=== PATIENT | male | born 1975 | race Caucasian/White ===

== ENCOUNTER 2023-07-01 12:50 | Emergency (ER) | payer BC, SELFPAY ==
--- NOTE | 2023-07-01 12:52 | ECG_ITS ---
[facility] Test Date: 2023-07-01 Pat Name: Felix Jasso Department: Room: Gender: Male [employer]ap[employer] Consultant: : 1975 Requested By: Tyrell Crews Order Number: [id number] Beth MD: Maykel Cowan M.D. Measurements Intervals [place] Rate: 97 P: 80 VT: 163 QRS: 18 QRSD: 110 T: 68 QT: 341 QTc: 433 Interpretive Statements SINUS RHYTHM INCOMPLETE RIGHT BUNDLE BRANCH BLOCK [90+ ms QRS DURATION, TERMINAL R IN V1/V2, 40+ ms S IN I/aVL/V4/V5/V6] No previous ECG available for comparison Electronically Signed On 07-02-2023 9:39:33 CDT by Maykel Cowan M.D. [id number]
[2023-07-01 12:58] VITALS: BP 110/73; PULSE 97; RESP 18; TEMP 36.7; O2SAT 100; BMI 25.7
--- NOTE | 2023-07-01 12:59 | XR_ITS ---
WS: [id number] Portable AP upright chest, 07/01/2023 Clinical Data: dyspnea/cough Comparison: None. Findings: No nodules, masses or effusions are seen. The heart is normal. The pulmonary vascularity is not increased. No pneumonia or pneumothorax is seen. Monitor leads are on the chest wall. Impression: Negative chest.
[2023-07-01 13:01] VITALS: BP 122/77; PULSE 89; RESP 16; O2SAT 100
--- NOTE | 2023-07-01 13:09 | W.ED.CHESTPA ---
HPI - Chest Pain General: Chief Complaint: Chest Pain Stated Complaint: chest pain Time Seen by Provider: 07/01/23 12:57 Source: patient Mode of arrival: ambulatory History of Present Illness: 48-year-old male presents emergency room complaining of chest discomfort. He started noticing it yesterday. Worse this morning around 10:00 radiating to his back. He feels a pressure sensation he has a history of hypertension. He is currently on metoprolol and lisinopril. He is a non-smoker has no known history of coronary disease no recent fever sweats or chills no productive cough no abdominal pain. No previous cardiac work-ups. MD complaint: chest pain Onset (ago): day(s) (1) Prior episodes: No Onset: during rest Pain location: left chest Pain radiation: back Severity: mild Quality: aching and heaviness Relieving factors: nothing Exacerbating factors: nothing Associated symptoms: Deny abdominal pain, diaphoresis, dyspnea, fever(s), leg edema, nausea, palpitations, sense of impending doom, syncope or vomiting Treatment prior to arrival: none Review of Systems Const: Denies: fever(s), chills or diaphoresis ENMT: Denies: throat pain, ear or mastoid pain, nasal discharge or nasal congestion Card: Reports: chest pain; Denies: palpitations or syncope Resp: Denies: dyspnea GI: Denies: abdominal pain, nausea or vomiting : Denies: flank pain, dysuria, urinary frequency or urinary urgency Skin/Breast: Denies: rash or pruritus Physical Exam Const: COMMON NORMALS: no acute distress GENERAL APPEARANCE: cooperative and comfortable ORIENTATION/CONSCIOUSNESS: Yes awake, Yes oriented to person, Yes oriented to place and Yes oriented to time HENMT: COMMON NORMALS: normocephalic, atraumatic and hearing grossly normal bilaterally HEAD & SCALP: normocephalic and atraumatic Resp: COMMON NORMALS: normal respiratory effort, No retractions, No use of accessory muscles and clear to auscultation bilaterally AUSCULTATION: clear to auscultation bilaterally Cardio: COMMON NORMALS: regular rate, regular rhythm and No murmurs present (Cardio) RATE: regular rate RHYTHM: regular rhythm GI: COMMON NORMALS: Soft to palpation and No hepatosplenomegaly present AUSCULTATION: Yes normoactive bowel sounds PALPATION: Yes Soft to palpation, No Tenderness to palpation present (GI), No Guarding due to palpation present (GI) and Yes No hepatosplenomegaly present Extremity: COMMON NORMALS: normal to inspection, capillary refill normal, no clubbing, cyanosis or edema, no calf tenderness and no pedal edema Neuro: SENSORIUM/ORIENTATION: Yes oriented to person, Yes oriented to place and Yes oriented to time Skin: COMMON NORMALS: no rashes or lesions noted GENERAL SKIN EXAM: no rashes or lesions noted Course Vital Signs: Vital signs: Vital Signs Temperature 98.1 F 07/01/23 12:58 Pulse Rate 86 07/01/23 16:17 Respiratory Rate 15 07/01/23 16:17 Blood Pressure 123/80 07/01/23 16:17 Pulse Oximetry 98 07/01/23 16:17 Oxygen Delivery Me thod Room Air 07/01/23 13:24 MDM - Chest Pain Medical Decision Making Atypical chest pain. Not currently having symptoms. Troponins trending normal. EKG does not show any acute changes. Chest x-ray is unremarkable. Discharge patient home. Will start on omeprazole and also add graded exercise stress test. Medical Records I reviewed the patient's medical records. Lab Data I reviewed the patient's lab results. 07/01/23 13:05 07/01/23 13:05 Laboratory Results WBC 6.61 10^3/uL (3.29-11.43) 07/01/23 13:05 RBC 5.03 10^6/uL (3.85-5.65) 07/01/23 13:05 Hgb 16.10 g/dL (11.27-16.99) 07/01/23 13:05 Hct 44.6 % (37-53) 07/01/23 13:05 MCV 88.7 fl (82-101) 07/01/23 13:05 MCH 32.0 pg (27-33) 07/01/23 13:05 MCHC 36.1 g/dL (30-55) 07/01/23 13:05 RDW 11.9 % (12.1-15.1) L 07/01/23 13:05 Plt Count 198 10^3/cmm (157-399) 07/01/23 13:05 MPV 10.1 fL (7.4-10.4) 07/01/23 13:05 Neut % (Auto) 73.6 % 07/01/23 13:05 Lymph % (Auto) 18.0 % 07/01/23 13:05 Bartholomew % (Auto) 7.7 % 07/01/23 13:05 Eos % (Auto) 0.2 % 07/01/23 13:05 Baso % (Auto) 0.2 % 07/01/23 13:05 Neut # (Auto) 4.87 10^3/uL (1.8-7.7) 07/01/23 13:05 Lymph # (Auto) 1.2 10^3/uL (0.8-4.8) 07/01/23 13:05 Bartholomew # (Auto) 0.5 10^3/uL (0.2-0.9) 07/01/23 13:05 Eos # (Auto) 0.0 10^3/uL (0.0-0.8) 07/01/23 13:05 Baso # (Auto) 0.0 10^3/uL (0.0-0.1) 07/01/23 13:05 Nucleated RBC % (auto) 0 % 07/01/23 13:05 Nucleated RBCs # 0.0 /100WBC 07/01/23 13:05 Sodium 133 mmol/L (136-145) L 07/01/23 13:05 Potassium 4.0 mmol/L (3.5-5.1) 07/01/23 13:05 Chloride 98 mmol/L (98-107) 07/01/23 13:05 Carbon Dioxide 25 mmol/L (22-29) 07/01/23 13:05 Anion Gap 14.0 (5-19) 07/01/23 13:05 BUN 22 mg/dL (6-20) H 07/01/23 13:05 Creatinine 1.2 mg/dL (0.7-1.2) 07/01/23 13:05 GFR Calculation 65.2 mL/min (90-130) L 07/01/23 13:05 Glucose 134 mg/dL (65-115) H 07/01/23 13:05 Calculated Osmolality 281 mOsm/kg (285-295) L 07/01/23 13:05 Calcium 9.4 mg/dL (8.5-10.5) 07/01/23 13:05 Total Bilirubin 0.3 mg/dL (0.15-1.2) 07/01/23 13:05 AST 40 U/L (0-40) 07/01/23 13:05 ALT 49 U/L (0-41) H 07/01/23 13:05 Alkaline Phosphatase 57 U/L (40-130) 07/01/23 13:05 Troponin T Baseline 8 ng/L (0-15) 07/01/23 13:05 Troponin T 120 Minute 10.78 ng/L (0-15) 07/01/23 14:59 Delta Troponin T 2.78 ABS# (0-10) 07/01/23 14:59 Total Protein 7.9 g/dL (6.6-8.7) 07/01/23 13:05 Albumin 4.7 g/dL (3.5-5.2) 07/01/23 13:05 Globulin 3.2 g/dL (1.3-4.6) 07/01/23 13:05 All radiology interpretation(s) finalized by discharge Discharge Plan Discharge Patient Disposition: Home Clinical Impression: Atypical chest pain, Labyrinthitis Condition: Stable Prescriptions: New aspirin 81 mg tablet,delayed release (DR/EC) 81 mg PO DAILY Qty: 30 0RF omeprazole 40 mg capsule,delayed release(DR/EC) 40 mg PO DAILY Qty: 30 0RF No Action lisinopril 20 mg tablet 20 mg PO BID metoprolol tartrate 50 mg tablet 50 mg PO BID Rx Instructions: Hold if pulse is less than 50 gabapentin 300 mg capsule 300 mg PO BEDTIME diclofenac sodium 75 mg tablet,delayed release (DR/EC) 75 mg PO DAILY hydroxyzine HCl 25 mg tablet 25 mg PO BID hydrochlorothiazide 25 mg tablet 25 mg PO DAILY Discharge Orders: Discharge ED (Routine); Ordered 07/01/23 Ordered By: Tyrell Kelly Discharge Diet: Usual diet Discharge Activity: Increase activity as tolerated Patient Instructions: Opioid Safety, Pain Management Activity Restrictions/Additional Instructions: You were seen today for atypical chest pain your cardiac enzymes and EKG does not show any acute changes. We will discharge you home have you start on omeprazole 40 mg daily. Case management make arrangements for an outpatient graded exercise stress test to further evaluate your heart. Coding Level of Care Code ED Power Plant Superintendent for Skipg Aurelio
[2023-07-01 13:22] LABS: Basophils % 0.2 %; Eosinophils % 0.2 %; Hematocrit 44.6 % (37-53); Lymphocytes # 1.2 10^3/uL (0.8-4.8); Mean Corpuscular HGB Conc 36.1 g/dL (30-55); Mean Corpuscular Volume 88.7 fl (82-101); Mean Platelet Volume 10.1 fL (7.4-10.4); Monocytes # 0.5 10^3/uL (0.2-0.9); Monocytes % 7.7 %; Neutrophils # 4.87 10^3/uL (1.8-7.7); Neutrophils % 73.6 %; Nucleated Red Blood Cells % 0 %; Platelet Count 198 10^3/cmm (157-399); Red Blood Count 5.03 10^6/uL (3.85-5.65); Red Cell Distribution Width 11.9 % (12.1-15.1); White Blood Count 6.61 10^3/uL (3.29-11.43)
[2023-07-01 13:24] VITALS: O2SAT 95
[2023-07-01 13:40] LABS: Alanine Aminotransferase 49 U/L (0-41); Albumin Level 4.7 g/dL (3.5-5.2); Alkaline Phosphatase 57 U/L (40-130); Aspartate Amino Transferase 40 U/L (0-40); Blood Urea Nitrogen 22 mg/dL (6-20); Calcium 9.4 mg/dL (8.5-10.5); Carbon Dioxide 25 mmol/L (22-29); Chloride 98 mmol/L (98-107); Globulin 3.2 g/dL (1.3-4.6); Glomerular Filtration Rate 65.2 mL/min (90-130); Glucose 134 mg/dL (65-115); Osmolality Calculated 281 mOsm/kg (285-295); Sodium 133 mmol/L (136-145); Total Bilirubin 0.3 mg/dL (0.15-1.2); Total Protein 7.9 g/dL (6.6-8.7)
[2023-07-01 14:11] VITALS: BP 117/75; PULSE 76; RESP 16; O2SAT 98
--- NOTE | 2023-07-01 14:30 | ECG_ITS ---
[facility] Test Date: 2023-07-01 Pat Name: Felix Jasso Department: Room: Gender: Male Disability Representative: : 1975 Requested By: Tyrell Crews Order Number: [id number] Beth MD: Maykel Cowan M.D. Measurements Intervals [place] Rate: 82 P: 76 [place]: 164 QRS: 9 QRSD: 114 T: 61 QT: 368 QTc: 432 Interpretive Statements SINUS RHYTHM INCOMPLETE RIGHT BUNDLE BRANCH BLOCK [90+ ms QRS DURATION, TERMINAL R IN V1/V2, 40+ ms S IN I/aVL/V4/V5/V6] Compared to ECG 07/01/2023 12:52:38 No significant changes Electronically Signed On 07-02-2023 9:38:53 CDT by Maykel Cowan M.D. [id number]
[2023-07-01 14:53] LABS: Troponin(5th) Baseline 8 ng/L (0-15)
[2023-07-01 15:37] LABS: Troponin 5 2HR 10.78 ng/L (0-15); Troponin 5 2HR Delta 2.78 ABS# (0-10)
[2023-07-01 16:17] VITALS: BP 123/80; PULSE 86; RESP 15; O2SAT 98
--- NOTE | 2023-07-03 17:04 | PC.SOCIAL ---
O/p Stress test. Consult received for o/p stress test. Attempted to contact patient to determine if he had PCP or [facility] for results to be sent to, Life partner's phone number reports that they do not know anyone by patient name. Unable to get an answer on other phone number listed in chart.
== END 2023-07-01 16:28 | disposition home or self-care (01) ==
PROVIDERS: Emergency Provider Family Medicine
DX: R07.89 Other chest pain (principal); H83.09 Labyrinthitis, unspecified ear
CPT/HCPCS: 36415; 71045; 80053; 84484; 85025; 93005; 99285

== ENCOUNTER 2023-12-27 09:39 | Outpatient (CLI) | payer BC, SELFPAY ==
--- NOTE | 2023-12-27 09:45 | NM_ITS ---
WS: [id number] NUCLEAR MEDICINE HIDA SCAN WITH GALLBLADDER EJECTION FRACTION HISTORY: RUQ PAIN COMPARISON: None available. TECHNIQUE: The patient was intravenously injected with 7.5 mCi of TC99m Mebrofenin. Immediate imaging over the right upper quadrant was followed by 5 minute image and additional images for a total of 60 minutes. Normal uptake of radiotracer throughout the liver. Activity identified in the gallbladder at 10 minutes and well distended by 60 minutes. Activity in the proximal small bowel was seen by 30 minutes. Good washout of the radiotracer from the liver by 60 minutes. The patient then drank 8 ounces of Ensure Plus. Ejection fraction at 60 minutes was 53%. Normal GB ej ection fraction is 35-75%. Post fatty meal symptoms: None. IMPRESSION: 1. Normal HIDA scan. 2. Normal gallbladder ejection fraction.
== END 2023-12-27 09:40 | disposition home or self-care (01) ==
PROVIDERS: PCP Internal Medicine; Visit Provider Internal Medicine
DX: R10.13 Epigastric pain (principal)
CPT/HCPCS: 78227; A9537